=== PATIENT | male | born 1990 | race Two or more races ===

== ENCOUNTER 2016-06-04 16:18 | Observation (INO) | payer SELFPAY ==
--- NOTE | 2016-06-04 16:21 | EDPHY ---
H & P HPI/ROS: CHIEF COMPLAINT: HISTORY OF PRESENT ILLNESS: REVIEW OF SYSTEMS: A ten point review of systems was performed and is negative with the exception of the items mentioned in the HPI. - Medical/Surgical History Other PMH: denies - Social History Smoking Status: Never smoked - Physical Exam Exam: General Appearance: Alert. Vital signs reviewed. * Eyes: Pupils equal and round, no conjunctival injection, no discharge. Anicteric. ENT, Mouth: Mucous membranes are moist, no oropharyngeal erythema or edema. Neck: No lymphadenopathy, supple. Respiratory: Lungs are clear to auscultation; no wheezes, rales, or rhonchi. Cardiovascular: Regular rate and rhythm; no murmur, rub, or gallop. Gastrointestinal: Abdomen is soft and nontender, no masses or organomegaly, bowel sounds normal. Skin: Warm and dry, no rashes on exposed skin, normal color. Back: Nontender to palpation over the thoracolumbar spine. No CVAT. Extremities: No lower extremity edema, no calf tenderness or swelling. Neurological: Alert and oriented. Moving all four extremities easily and equally. Cranial nerves II through XII are examined and are intact (visual acuity not tested). Strength is 5 over 5 bilaterally with testing of all major motor groups. Sensation is intact to light touch over all 4 extremities. Deep tendon reflexes are 2+ in the biceps and knees bilaterally. Gait is normal. [id number] is performed accurately. Psychiatric: Normal affect. Constitutional: Initial Vital Signs Temperature (C) 36.9 C 06/04/16 16:18 Heart Rate 71 06/04/16 16:18 Respiratory Rate 17 06/04/16 16:18 Blood Pressure 103/74 06/04/16 16:18 O2 Sat (%) 95 06/04/16 16:18 O2 Delivery Mode Room Air Allergies/Adverse Reactions: No Known Allergies Allergy (Verified 06/04/16 16:35) Home Medications: Medication Instructions Recorded NK [No Known Home Meds] 06/04/16 Medical Decision Making - Data Points Laboratory Results: 06/04/16 16:19 POC Hgb 15.0 gm/dL (14.5-17.3) POC Hct 44 % (42.8-50.6) POC Sodium 140 mEq/L (134-144) POC Potassium 3.6 mEq/L (3.3-5.0) POC Chloride 102 mEq/L (96-108) POC BUN 16 mg/dL (7-23) POC Creatinine 0.8 mg/dL (0.8-1.5) POC Glucose 99 mg/dL (70-100) Point of Care Test Results: 06/04/16 16:19 POC Sodium 140 POC Potassium 3.6 POC Chloride 102 POC BUN 16 POC Creatinine 0.8 POC Glucose 99 Physician Review and Approval Statement: 06/04/16 16:21 Portions of this note were transcribed by the medical director. I, Dr. Darby Maldonado, personally performed the history, physical exam, and medical decision- making; and confirmed the accuracy of the information in the transcribed note.
--- NOTE | 2016-06-04 16:25 | EDPHY ---
H & P HPI/ROS: CHIEF COMPLAINT: Stroke Alert HISTORY OF PRESENT ILLNESS: The patient is a 26 y/o male arriving emergently via EMS as a Stroke Alert with right-sided weakness and headache onset 1 hour ago, about 15:20. He has a history of migraines with similar presentation previously. The last time he experienced these symptoms was February 2016 and per patient one physician said he had a stroke while a second physician disagreed thinking this was a complex migraine presentation. He did receive TPA during that admission and a patent foramen ovale was noted on echocardiogram. He told EMS today he developed a left-sided headache as he was walking out of [employer] and felt like his "left eye was being pushed out." Shortly after that he developed right arm and leg weakness. His says he got up to walk to the bathroom at home and fell down 6-7 stairs and was passed out at the bottom of the stairs. She denies witnessing seizure activity. When he regained consciousness she says she had difficulty understanding what he was saying. REVIEW OF SYSTEMS: A 10 point review of systems was performed and is negative with the exception of the elements mentioned in the history of present illness. Source: EMS - Medical/Surgical History PMH: PMH includes: 1. 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 Patent foramen ovule on echo 3. Spontaneous pneumothorax 4. History of concussive syndrome Reviewed prior medical records including admission on 03/02/16 for headache and right hemiparesis. - Family History Significant Family History: No pertinent family hx - Social History Alcohol Use: None Drug Use: None Additional Social History: , at bedside. - Physical Exam Exam: General Appearance: Alert, no acute distress. Head: Normocephalic atraumatic. Eyes: Pupils equal and round, no conjunctival injection, no discharge. ENT, Mouth: Mucous membranes are moist, no oropharyngeal erythema or edema. Neck: No lymphadenopathy, supple. Nontender to palpation of the cervical spine in the midline. Respiratory: Lungs are clear to auscultation; no wheezes, rales, or rhonchi. Cardiovascular: Regular rate and rhythm; no murmur, rub, or gallop. Gastrointestinal: Abdomen is soft and non tender, no masses or organomegaly, bowel sounds normal. Skin: Warm and dry, no rashes, normal color. Back: Midthoracic tenderness to palpation. No other vertebral tenderness. Extremities: No lower extremity edema, no calf tenderness or swelling. Neurological: Alert and oriented x4. Cranial nerves II through XII are examined and are abnormal - left tongue deviation, slightly decreased facial sensation to light touch on right side in V1, V2, V3 distributions. Right pronator drift, right leg weakness. 5/5 left upper and left lower extremity strength testing of all major motor groups. Sensation is intact to light touch over all 4 extremities. Deep tendon reflexes 2+ in the biceps and knees bilaterally. No clonus. Psychiatric: Normal affect. Constitutional: Initial Vital Signs Temperature (C) 36.9 C 06/04/16 16:18 Heart Rate 71 06/04/16 16:18 Respiratory Rate 17 06/04/16 16:18 Blood Pressure 103/74 06/04/16 16:18 O2 Sat (%) 95 06/04/16 16:18 O2 Delivery Mode Room Air Allergies/Adverse Reactions: No Known Allergies Allergy (Verified 06/04/16 16:35) Home Medications: Medication Instructions Recorded NK [No Known Home Meds] 06/04/16 Medical Decision Making - Diagnostics Imaging: Study: CT of the Head Indication: Right hemiparesis Results: CT scan of the head was obtained. The results of the study are Negative CT scan of the head with no findings to suggest acute cortical ischemia or hemorrhage. The study was read by the radiologist, Dr. Ashraf. I viewed the images myself on the PACS system. Study: CTA of the Head Indication: Hemiparesis, neurologist's request Results: CT scan of the head was obtained. The results of the study are normal. The study was read by the radiologist, Dr. Ashraf. I viewed the images myself on the PACS system. Study: CTA of the Neck Indication: Hemiparesis, neurologist's request Results: CT scan of the neck was obtained. The results of the study are normal. The study was read by the radiologist, Dr. Ashraf. I viewed the images myself on the PACS system. ED Course/Re-evaluation: 1618: Met EMS upon arrival and took report. left side headache "eye being pushed out" onset 1 hr ago right sided weakness left tongue deviation previous symptoms like this with migraines 1 year ago possibly previous stroke? Upon review of his previous records it appears that he was discharged with a diagnosis of complex migraine after very similar presentation. That time he had CT scan of the brain, CT angiogram of the head neck, MRI scanning performed. All imaging studies were normal. Echocardiogram showed patent foramina ovale. I suspect that today's episode is also a complex migraine. 1619: Patient sent to CT for head imaging. 1635: Head CT is negative per Dr. Ashraf 1649: Consulted with Dr. Corona, neurology. He examined the patient via telemedicine robot. It is his impression that this is likely a complex migraine. He recommends treatment with a migraine cocktail. I have ordered 1 L normal saline, Reglan 10 mg IV, Toradol 30 mg IV, and Benadryl 25 mg IV. He does not recommend tPA and I agree with this assessment. 1825: Patient has been sleeping. When awakened he continues to complain of headache. He he has residual right upper and right lower extremity weakness. slightly improved from when he arrived. He had complained of mid thoracic pain. This is no longer present. I have not found evidence of any injuries from his reported fall. With his residual weakness and persistent headache I feel that he should be admitted to the hospital. Dr. Homero Graff is the accepting physician. Differential Diagnosis: Headache including but not limited to subarachnoid hemorrhage, ischemic stroke, complex migraine, Yohannes's paralysis following seizure, cervical injury or is a result of his fall, migraine headache, tension headache and infectious causes such as meningitis, pharyngitis and sinusitis. - Data Points Laboratory Results: Laboratory Results 06/04/16 16:30 06/04/16 16:30 06/04/16 06/04/16 06/04/16 17:20 16:30 16:19 WBC 8.16 10^3/uL (3.80-9.50) RBC 4.72 10^6/uL (4.40-6.38) Hgb 14.9 g/dL (13.7-17.5) POC Hgb 15.0 gm/dL (14.5-17.3) Hct 43.0 % (40.0-51.0) POC Hct 44 % (42.8-50.6) MCV 91.1 fL (81.5-99.8) MCH 31.6 pg (27.9-34.1) MCHC 34.7 g/dL (32.4-36.7) RDW 11.6 % (11.5-15.2) Plt Count 341 10^3/uL (150-400) MPV 9.6 fL (8.7-11.7) Neut % (Auto) 59.5 % (39.3-74.2) Lymph % (Auto) 30.4 % (15.0-45.0) [place] % (Auto) 7.5 % (4.5-13.0) Eos % (Auto) 1.8 % (0.6-7.6) Baso % (Auto) 0.6 % (0.3-1.7) Nucleat RBC Rel Count 0.0 % (0.0-0.2) Absolute Neuts (auto) 4.85 10^3/uL (1.70-6.50) Absolute Lymphs (auto) 2.48 10^3/uL (1.00-3.00) Absolute Monos (auto) 0.61 10^3/uL (0.30-0.80) Absolute Eos (auto) 0.15 10^3/uL (0.03-0.40) Absolute Basos (auto) 0.05 10^3/uL (0.02-0.10) Absolute Nucleated RBC 0.00 10^3/uL (0-0.01) Immature Gran % 0.2 % (0.0-1.1) Immature Gran # 0.02 10^3/uL (0.00-0.10) PT 13.8 SEC (12.0-15.0) INR 1.07 (0.83-1.16) APTT 33.1 SEC (23.0-38.0) POC Sodium 140 mEq/L (134-144) Sodium 138 mEq/L (134-144) POC Potassium 3.6 mEq/L (3.3-5.0) Potassium 4.4 mEq/L (3.5-5.2) POC Chloride 102 mEq/L (96-108) Chloride 100 mEq/L (97-110) Carbon Dioxide 23 mEq/l (22-31) Anion Gap 15 mEq/L (8-16) POC BUN 16 mg/dL (7-23) BUN 15 mg/dL (7-23) Creatinine 0.8 mg/dL (0.7-1.3) POC Creatinine 0.8 mg/dL (0.8-1.5) Estimated GFR > 60 Glucose 93 mg/dL (70-100) POC Glucose 99 mg/dL (70-100) Calcium 9.6 mg/dL (8.5-10.4) Medications Given: Discontinued Medications Diphenhydramine HCl (Benadryl Injection) 25 mg IVP EDNOW ONE Stop: 06/04/16 17:12 Last Admin: 06/04/16 17:24 Dose: 25 mg Ketorolac Tromethamine (Toradol) 30 mg IVP EDNOW ONE Stop: 06/04/16 17:12 Last Admin: 06/04/16 17:24 Dose: 30 mg Metoclopramide HCl (Reglan Injection) 10 mg IVP EDNOW ONE Stop: 06/04/16 17:13 Last Admin: 06/04/16 17:24 Dose: 10 mg Point of Care Test Results: 06/04/16 16:19 POC Sodium 140 POC Potassium 3.6 POC Chloride 102 POC BUN 16 POC Creatinine 0.8 POC Glucose 99 Departure - Departure Disposition: [facility] Inpatient Acute Clinical Impression: Right hemiparesis, Left-sided headache Migraine Qualifiers: Qualifier Code: (G43.409) Hemiplegic migraine, not intractable, without status migrainosus Condition: Good Report Scribed for: Darby Maldonado Report Scribed by: Christi Guzman Date of Report: 06/04/16 Time of Report: 16:25 Physician Review and Approval Statement: 06/04/16 19:10 Portions of this note were transcribed by the medical coding manager. I, Dr. Darby Maldonado, personally performed the history, physical exam, and medical decision- making; and confirmed the accuracy of the information in the transcribed note.
--- NOTE | 2016-06-04 16:40 | CT ---
CT Head Without Intravenous Contrast Reason for examination: Extremity weakness in a 26-year-old male with a history of complex migraine. Technique: Axial images are obtained at 5 mm intervals and reformatted at 1.25 mm thickness. The exam ination is reviewed on the workstation at multiple window/level settings. Sagittal and coronal reform ations are performed. Dose reduction techniques were utilized. Comparison to the prior noncontrast CT scan of the head March 02, 2016 and to the MRI study of Octo 2015. Findings: No masses, areas of hemorrhage, or extraaxial fluid collections are identified. There are n o secondary findings to suggest acute cortical ischemia. Ventricles and midline structures are normal in position and configuration for a patient of this age. The cerebellopontine angles appear normal. The craniovertebral junction is normal. There is stable in appearance of a retention cyst or polyp in the floor of the left maxillary sinus. No air-fluid levels are seen in the sinuses. The mastoids are normally aerated. There has been no change from the previous CT study. Impression: Negative CT scan of the head with no findings to suggest acute cortical ischemia or hemor rhage. A preliminary report was called to Dr. Darby Maldonado at 1635 hours in the Emergency Department.
[2016-06-04] MEDS ORDERED: IOPAMIDOL (ISOVUE 370) 75 ML BTL IV ONE (17:00)
[2016-06-04] MEDS ORDERED: KETOROLAC 30 MG/1 ML SDV IVP ONE (17:11)
[2016-06-04] MEDS ORDERED: METOCLOPRAMIDE 10 MG/2 ML VIAL IVP ONE (17:12)
[2016-06-04 17:13] LABS: % IMMATURE GRANULYOCYTES 0.2 % (0.0-1.1); ABSOLUTE IMMATURE GRANULOCYTES 0.02 10^3/uL (0.00-0.10); ADD DIFF? NO; ADD MORPH? NO; ADD SCAN? NO; ATYPICAL LYMPHOCYTE FLAG 20 (0-99); FRAGMENT RBC FLAG 0 (0-99); HEMOGLOBIN 14.9 g/dL (13.7-17.5); LEFT SHIFT FLG 0 (0-99); LIPEMIA HEMOLYSIS FLAG 90 (0-99); MEAN CELL HEMOGLOBIN 31.6 pg (27.9-34.1); MEAN CELL HEMOGLOBIN CONCENTR. 34.7 g/dL (32.4-36.7); MEAN CELL VOLUME 91.1 fL (81.5-99.8); MEAN PLATELET VOLUME 9.6 fL (8.7-11.7); PLATELET CLUMPS FLAG 30 (0-99); PLATELET COUNT 341 10^3/uL (150-400); RED BLOOD CELL COUNT 4.72 10^6/uL (4.40-6.38); RED CELL DISTRIBUTION WIDTH 11.6 % (11.5-15.2)
[2016-06-04 17:19] LABS: ANION GAP 15 mEq/L (8-16); CALCIUM 9.6 mg/dL (8.5-10.4); CARBON DIOXIDE 23 mEq/l (22-31); CHLORIDE 100 mEq/L (97-110); CREATININE 0.8 mg/dL (0.7-1.3); GLOMERULAR FILTRATION RATE > 60; GLUCOSE 93 mg/dL (70-100); POTASSIUM 4.4 mEq/L (3.5-5.2); SODIUM 138 mEq/L (134-144)
[2016-06-04 17:37] LABS: INR 1.07 (0.83-1.16); PROTIME(PATIENT) 13.8 SEC (12.0-15.0)
[2016-06-04 17:38] LABS: APTT 33.1 SEC (23.0-38.0)
--- NOTE | 2016-06-04 17:51 | CT ---
CT Angiography Neck With Contrast Reason for examination: Strokelike symptoms in a 26-year-old male with history of complex migraine. Evaluate for vascular occlusion. Technique: Spiral acquisition was performed from the level of the thoracic inlet to the skull base du ring rapid intravenous administration of 85 mL of Isovue-370. This contrast volume was utilized for e valuation of the neck and head. Images were obtained at 0.6 mm thickness and reviewed on the workstat ion at multiple window and level settings. Sagittal and coronal reformations are performed. Also, a t hree-dimensional reformation is performed by the radiologist on the workstation. Dose reduction tech niques were utilized. Comparison to the previous CT angiography of the head and neck March 02, 2016. Findings: There is excellent arterial opacification. The anatomy of the aortic arch is normal. There is a normal anatomic variant with the left vertebral artery arising directly from the aortic arch. As sessment of the carotids and vertebrals demonstrates normal flow with no stenosis or dissection ident ified. No areas of abnormal enhancement are seen and no vascular malformations are noted. Impression: Negative CT angiography of the neck with no arterial occlusive disease identified. CT Angiography of the Head With Attention to the [place] Reason for examination: Strokelike symptoms in a 26-year-old male with a history of complex migraine, evaluate for vascular occlusion. Technique: A spiral acquisition was performed from the base of the brain to the vertex during rapid i ntravenous administration of 85 mL of Isovue-370. This contrast volume was utilized for evaluation o f the neck and head. Axial images are obtained at 0.6 mm thickness and the examination is reviewed on the workstation in multiple window and level settings. Sagittal and coronal reformats are performed and three-dimensional reformations are performed by the radiologist on the workstation. Dose reduct ion techniques were utilized. Findings: There is excellent arterial opacification. The great vessels at the base of the brain are n ormal in appearance. The anterior and middle cerebral arteries appear normal. The [place] is intact with both anterior and posterior communicating arteries identified. The basilar artery as wel l as posterior cerebral arteries are normal. No regions of stenosis are identified. No hemorrhages ar e seen and no vascular malformations are identified. No areas of abnormal perfusion are identified an d there are no findings to suggest cortical ischemia. Impression: Normal CT angiography of the head with attention to the great vessels of the [place]. Note: All stenoses are calculated using NASCET Criteria. There has been no significant change from the prior study. A preliminary report was called to Dr. Darby Maldonado at 1750 hours in the Emergency Department.
[2016-06-04] MEDS ORDERED: IBUPROFEN 600 MG TAB PO PRN (19:37)
[2016-06-04] MEDS ORDERED: ONDANSETRON 4 MG/2 ML VIAL IVP PRN (19:37)
[2016-06-04] MEDS ORDERED: PROMETHAZINE HCL 25 MG/ML VIAL IVP PRN (19:37)
[2016-06-04] MEDS ORDERED: ACETAMINOPHEN 325 MG TAB PO PRN (19:37)
[2016-06-04 19:47] VITALS: RESP 16
--- NOTE | 2016-06-04 20:07 | GHP ---
[f rep st] HISTORY AND PHYSICAL DATE OF ADMISSION: 06/04/2016 CHIEF COMPLAINT: Headache with loss of consciousness and right-sided weakness. HISTORY OF PRESENT ILLNESS: This is a 26-year-old male who was hospitalized in February 2016 after he presented to the hospital as a stroke alert, was given tPA for suspected seizure that was later thou ght to be due to a complex migraine headache after undergoing a negative workup. Since his last hospitalization in February, he reports having 5 severe headaches. He has not followed up with a neurologist. Today at around 3:30, he developed what he describes as a severe right-sided sharp throbbing pounding headache that was rated 10/10. It was associated with some photophobia and phonophobia, but no nausea or vomiting. About 30 minutes after developing the headache, he did not feel well, and while walking to the bathroom, fell down some steps and lost consciousness where he wa s noted to be unarousable for 10 minutes. After awaking, he was extremely confused. He had no loss of bowel or bladder continence. Currently, the patient reports his headache is a 3/10 and is improving. He continues to have some ri ght-sided weakness. PAST MEDICAL HISTORY: 1. Spontaneous pneumothorax. 2. Hospitalization for presumed complex migraine headache in February 2016. PAST SURGICAL HISTORY: Denies. HOME MEDICATIONS: Denies. ALLERGIES: No known drug allergies. SOCIAL HISTORY: The patient lives at [place]. He denies any significant alcohol use. He denies any tobacco or illicit drug use. FAMILY HISTORY: Reviewed and noncontributory. REVIEW OF SYSTEMS: Comprehensive 10-point review of systems was done and is negative except for as m entioned in the HPI. PHYSICAL EXAM: VITAL SIGNS: Blood pressure 107/58, pulse of 83, respiratory rate 15, O2 saturation 96% on room air. Temperature afebrile. GENERAL: No acute distress. HEENT: Head normocephalic, at raumatic. Eyes are PERRLA. Sclerae anicteric. Mouth, moist mucous membranes. There is no tongue l aceration. NECK: Supple. No lymphadenopathy. CARDIOVASCULAR: S1 and S2. No JVD. No lower extre mity edema. PULMONARY: Lungs are clear. No wheezes, rales, or rhonchi. ABDOMEN: Soft, nontender, nondistended. No guarding or rebound tenderness. Normoactive bowel sounds. EXTREMITIES: No clubb ing or cyanosis. NEURO: Cranial nerves 2-12 are grossly intact with the exception of some facial we akness on the right with asymmetric smile. Muscle strength with 5/5 left upper extremity flexion, ex tension, twisting machine operator. Muscle strength 4/5 right twisting machine operator, 4-/5 right upper extremity flexion and extension. DT Rs are symmetric. Muscle strength is slightly diminished in right hip flexion at 4/5. Left lower ex tremity muscle strength is intact. SKIN: Clear, no rashes. DIAGNOSTICS: MRI of the brain done on 03/03/2016 was reviewed. It was read as normal. CTA of the head and neck done today was read as normal with no arterial occlusive disease. Head CT was negative for acute cortical ischemia or hemorrhage. Discharge summary dated 03/05/2016 was reviewed. WBCs 8.1, hemoglobin 14.9, hematocrit 43, platelets 341. Sodium 138, potassium 4.4, chloride 100, CO 2 of 23, BUN 15, creatinine 0.8, glucose 93. ASSESSMENT AND PLAN: This is a 26-year-old male, hospitalized in February 2016 with a similar present ation of headache, loss of consciousness, and right-sided weakness presenting with: 1. Headache associated with loss of consciousness and postictal phase with resulting right-sided wea kness. Differential diagnosis includes complex migraine headache versus possible Yohannes paralysis from undiagnosed seizure disorder. PLAN: Patient will be placed on observation. I have discussed the case with Dr. Nicolas [place] [facility] [place] patient in consultation. The patient was already seen by [facility] in the emergency department and was deemed not a candidate for tPA. I will try to add on a prolactin le little to the blood drawn on initial presentation to see if this is elevated which would be consistent w ith a seizure. For now, we will treat his headache supportively with anti-inflammatory medications and antiemetics a s needed. He should be evaluated for migraine prophylactic if this is the cause of his recurrent vis its to the hospital. Once again, the patient reports that he has had 5 migraine headaches since . /[id number]/MODL
[2016-06-05 09:26] VITALS: BP 103/58; PULSE 65; TEMP 97.6; O2SAT 94
--- NOTE | 2016-06-05 10:03 | GCON ---
[f rep st] CONSULTATION NEUROLOGIC CONSULTATION REFERRING PHYSICIAN: Homero Graff DO HISTORY OF PRESENT ILLNESS: The patient is a 26-year-old gentleman who I am asked to see in neurolog ic consultation regarding episode of suspected complex migraine phenomena. He had a very similar epi sode in February of 2016, and was seen by Dr. De La Torre at that time. They went through extensive evaluati on and found no evidence of definitive physical abnormalities and negative workup with brain MRI and CT angiogram of the head and neck. He did have a PFO identified. He was put on aspirin out of cauti on, but it was suspected that this was a complex migraine. He was supposed to follow up with Dr. Christopher dalal in the office, but has failed to follow up. Since that time, he reports having probably 5 headache s, but none of them have been associated with significant weakness. The headaches usually are modera te in severity, and he wants to go lie down in a dark room because he is sensitive to light and sound . They may resolve after an hour or 2 with taking no medication. Yesterday, he had not done anythin g unusual. He had gone to [employer], and when he was leaving, he felt some pressure behind the left eye and some headache. He was going to rest and took some ibuprofen, and got up to go to the bathroom. He believes he tried to go down some steps and fell and temporarily lost consciousness. He does not know any of the details regarding that. He was brought to the emergency department as a stroke aler t, and they found no convincing evidence of stroke clinically, despite a little bit of right-sided we akness. [facility] was consulted, and they assessed him for any significant deficits, and felt he was not a candidate for tPA. It was felt that this was most likely a complex migraine per the emergency department as well as Dr. Fields from [facility]. Therefore, it was advised that he be admit winifred and monitored, and given a migraine cocktail with Toradol, Reglan, and Benadryl. Since coming to the hospital, he says the symptoms are all getting better. He does not feel complete ly back to normal, and is a little bit sore. He has not found any other associated symptoms. He rem ains amnestic for the exact details of the event. REVIEW OF SYSTEMS: A 10-point review of systems was completed and unremarkable except for that noted above. PAST MEDICAL HISTORY: As outlined above with the prior history of complex migraine in February 2016. History of spontaneous pneumothorax. ALLERGIES: None. SOCIAL HISTORY: Lives in [place]. He works at [employer]. No alcohol. No smoking or drug use. FAMILY HISTORY: He says family history is negative for neurologic conditions or any history of migra ine. CURRENT MEDICATIONS: He was not taking anything regularly at home. He now has Tylenol, ibuprofen, Z ofran, and Phenergan as needed. PHYSICAL EXAMINATION: VITAL SIGNS: Blood pressure is 99/61, pulse 60, respirations 16, temperature 36.8. GENERAL: Well developed, in no acute distress. HEENT: Eyes are clear. NECK: Supple with n o bruits or masses. CARDIAC: Regular rate and rhythm. No murmur. EXTREMITIES: No cyanosis or zev ma. Pulses are 2+. NEUROLOGIC: He is awake, alert, and attentive, and oriented to person, place, t kentrell, and situation. He has good recent and remote memory, but is amnestic for the exact events when he fell. His concentration and attention are preserved. General fund of knowledge is normal. Pupil s 2 mm and reactive. I cannot see the fundi adequately. No visual field loss. Extraocular movement s are intact. Normal facial sensation and strength. Palate elevates symmetrically. Tongue protrude s midline. No weakness of head turning or shoulder shrug. Motor exam: Normal muscle bulk and tone with minimal weakness in the proximal right upper and right lower extremity. Sensation is preserved for temperature and light touch. There are no abnormal movements. No ataxic movements in the upper extremities. Reflexes 2+. No pathologic reflexes. IMAGING: I have reviewed his head CT, CT angiogram of the head and neck, and all of these are unrema rkable. LABORATORY AND DIAGNOSTIC STUDIES: Normal CBC and chemistry. His prolactin level was a little bit e levated at 31. IMPRESSION: The patient has experienced a probable complex migraine phenomena, although the definiti ve cause of this is not clear. The elevated prolactin level is nonspecific. Differential considerat ions would include a transient ischemic attack or seizure with postictal weakness. The description i s not very specific for seizure. In any case, he should be stable for discharge. He can have outpat ient followup. I told him in the short term he should not drive because we are not clear exactly wha t has happened. We need further clarification on what is occurring, and he should follow up in our o ffice with either Dr. De La Torre or myself. We can then arrange for outpatient EEG. He was advised to sta rt riboflavin 400 mg daily for prevention of migraine phenomena. Continuing 1 baby aspirin per day w ould be reasonable. He was advised not to return to work until he feels fully recovered. /[id number]/MODL
--- NOTE | 2016-06-05 16:35 | GDS ---
[f rep st] DISCHARGE SUMMARY CHIEF COMPLAINT: Fall down some steps with temporary loss consciousness for details of patient's ini tial presentation, please see the history and physical dated 06/05/2015. DISCHARGE DIAGNOSES: Include: 1. Suspected complex migraine phenomena. 2. Postictal weakness. 3. History of a spontaneous pneumothorax. CONSULTATIONS: Neurology. PROCEDURES: On 06/04/2016, patient had a CTA of the head and neck that showed no arterial occlusive disease. On 06/04/2016, patient had a noncontrast CT of the head that showed no acute findings. HOSPITAL COURSE BY ISSUE: Patient presented with acute weakness and fall, was admitted as a stroke a lert. Consultation with [facility] and ultimately [facility] neurology found the patient likely is having postictal weakness since symptoms consistent with complex migraine headaches. Patient is stab le without symptoms on the day this disposition, is being discharged on riboflavin daily, as well as baby aspirin. He is to follow in the next 5 days' time in the Neurology [facility] for his first post d isposition followup. MEDICATIONS AT THE TIME OF DISPOSITION: Please reference medication reconciliation printed on 2016. FOLLOWUP APPOINTMENTS: Include with either Dr. Pickering or Dr. De La Torre during the week of 06/05/2016. PENDING STUDIES AT THE TIME OF THIS DICTATION: None. I spent greater than 30 minutes in the planning and coordination of this discharge. /[id number]/MODL
== END 2016-06-05 11:35 | disposition home or self-care (01) ==
LOC: EDUNIT# → F3N 19:34
PROVIDERS: ADMIT Family Medicine; ATTEND Family Medicine
DX: G43.409 Hemiplegic migraine, not intractable, without status migrainosus (principal); G43.109 Migraine with aura, not intractable, without status migrainosus; Q21.1 Atrial septal defect; W10.8XXA Fall (on) (from) other stairs and steps, initial encounter; Y93.89 Activity, other specified; Y92.018 Other place in single-family (private) house as the place of occurrence of the external cause
CPT/HCPCS: 82947-QW; 92523-GN; 96374; 97165-GO; 97166-GO; G0378; J1885; J2765